=== PATIENT | male | born 2000 | race African-American/Black ===

== ENCOUNTER 2023-06-16 16:26 | Emergency (ER) | payer MEDICAID ==
[~2023-06-16] VITALS: Ht 172.7 cm; Wt 68.0 kg
[~2023-06-16 16:26] MED LIST: NO MEDS; ROBITUSSIN
[2023-06-16 16:56] VITALS: BP 102/61; PULSE 65; RESP 16; TEMP 98.5; O2SAT 100
[2023-06-16 17:34] LABS: HEMATOCRIT. 44.5 % (42.0-52.0); HEMOGLOBIN. 15.4 g/dL (14.0-18.0); MEAN CORPUSCULAR HEMOGLOBIN 31.5 pg (28.0-32.0); MEAN CORPUSCULAR HGB CONC 34.7 g/dL (31.0-37.0); MEAN CORPUSCULAR VOLUME 90.7 fL (80.0-94.0); MEAN PLATELET VOLUME 9.6 fl (7.4-10.4); PLATELET 191 x1000/uL (130-400); RED CELL DISTRIBUTION WIDTH 13.6 % (11.6-14.6); WHITE BLOOD COUNT 17.2 x1000/uL (4.5-11.0)
[2023-06-16 17:42] LABS: DIFFERENTIAL COMMENT 1
[2023-06-16 17:48] LABS: ALANINE AMINOTRANSFERASE 16 IU/L (10-49); ALBUMIN 4.7 g/dL (3.2-4.8); ASPARTATE AMINOTRANSFERASE 24 IU/L (<34); BILIRUBIN TOTAL 1.8 mg/dL (0.1-1.0); CALCIUM 9.8 mg/dL (8.7-10.4); CARBON DIOXIDE 31 mEq/L (21-32); CHLORIDE 102 mEq/L (98-107); GLUCOSE 91 mg/dL (70-105); POTASSIUM 4.2 mEq/L (3.5-5.1); PROTEIN TOTAL 6.9 g/dL (6.0-8.3); SODIUM 138 mEq/L (136-145); UREA NITROGEN BLOOD 7 mg/dL (9-23)
[2023-06-16] MEDS ORDERED: ONDA4TAB11 PO (21:38)
[2023-06-16 22:07] LABS: ALANINE AMINOTRANSFERASE 16 IU/L (10-49); ALBUMIN 4.6 g/dL (3.2-4.8); ASPARTATE AMINOTRANSFERASE 24 IU/L (<34); BILIRUBIN TOTAL 1.6 mg/dL (0.1-1.0); CALCIUM 9.5 mg/dL (8.7-10.4); CARBON DIOXIDE 27 mEq/L (21-32); CHLORIDE 102 mEq/L (98-107); CREATININE 0.9 mg/dL (0.6-1.3); GLUCOSE 90 mg/dL (70-105); POTASSIUM 3.6 mEq/L (3.5-5.1); PROTEIN TOTAL 7.7 g/dL (6.0-8.3); SODIUM 138 mEq/L (136-145); UREA NITROGEN BLOOD 9 mg/dL (9-23)
[2023-06-16 22:47] LABS: PLATELET ESTIMATE NORMAL
== END 2023-06-16 22:31 | disposition home or self-care (01) ==
LOC: ER 16:26
DX: R10.31 Right lower quadrant pain (principal); R10.13 Epigastric pain; R11.10 Vomiting, unspecified
CPT/HCPCS: 36415; 74176; 80053; 85025; 86850; 86900; 99284